=== PATIENT | female | born 2000 | race Caucasian/White ===

== ENCOUNTER 2019-04-18 18:23 | Emergency (ER) | payer BC ==
[2019-04-18] MEDS ORDERED: Sodium Chloride 0.9% 10 ML Syringe FLUSH PRN (18:46)
[2019-04-18] MEDS ORDERED: Ketorolac 30 MG/ML SDV IVPUSH ONE (18:47)
[2019-04-18] MEDS ORDERED: Ondansetron 4 MG/2 ML SDV IVPUSH ONE (18:47)
[2019-04-18] MEDS ORDERED: Sodium Chloride 0.9% 1,000 ML IV SCH (19:00)
--- NOTE | 2019-04-18 20:02 | EDM.PDOC ---
ED HPI GENERAL MEDICAL PROBLEM - General Chief Complaint: General Stated Complaint: SICK, CAN'T KEEP ANY FOOD/LIQUID DOWN, HEADACHE Time Seen by Provider: 04/18/19 18:30 Source of Information: Reports: Patient History Limitations: Reports: No Limitations - History of Present Illness INITIAL COMMENTS - FREE TEXT/NARRATIVE: Patient presented to the ED because of headache over the temporal area,throbbing ,8/10 with associated photophobia. She also c/o N/V/D x1 days. denies any fever, chills or abdominal pain. She took OTC aleve without any relief. - Related Data Allergies Allergy/AdvReac Type Severity Reaction Status Date / Time amoxicillin Allergy throat Verified 04/18/19 20:53 swells Home Meds: Home Meds Ibuprofen [Motrin] 800 mg PO Q8H PRN #30 tablet 04/18/19 [Rx] Ondansetron [Zofran ODT] 4 mg PO Q4H PRN #10 tab.dis 04/18/19 [Rx] ED ROS GENERAL - Review of Systems Review Of Systems: See Below Constitutional: Reports: No Symptoms HEENT: Reports: No Symptoms Respiratory: Reports: Cough Cardiovascular: Reports: No Symptoms Endocrine: Reports: No Symptoms GI/Abdominal: Reports: Diarrhea, Nausea, Vomiting. Denies: Abdominal Pain : Reports: No Symptoms Musculoskeletal: Reports: No Symptoms Skin: Reports: No Symptoms ED EXAM, GENERAL - Physical Exam Exam: See Below Exam Limited By: No Limitations General Appearance: Alert, WD/WN, No Apparent Distress Ears: Normal External Exam, Normal Canal Nose: Normal Inspection, Normal Mucosa, No Blood Throat/Mouth: Normal Inspection, Normal Lips, Normal Teeth, Normal Gums Head: Atraumatic, Normocephalic Neck: Normal Inspection, Supple, Non-Tender, Full Range of Motion GI/Abdominal: Soft, Non-Tender, No Organomegaly, No Distention, Other ( hyperactive bowel sound) Back Exam: Normal Inspection, Full Range of Motion Extremities: Normal Inspection, Normal Range of Motion Course - Vital Signs Text/Narrative:: labs reviewed wnad discussed with patient NS 1 L bolus Zofran 4 mg IV toradol 30 mg IV x1 Last Recorded V/S: Last Vital Signs Temp 36.4 C 04/18/19 20:25 Pulse 91 04/18/19 20:25 Resp 18 04/18/19 20:25 BP 125/72 04/18/19 20:25 Pulse Ox 100 04/18/19 20:25 - Orders/Labs/Meds Orders: Active Orders 24 hr Category Date Time Status Saline Lock Insert [OM.PC] Routine Oth 04/18/19 18:46 Ordered Labs: Laboratory Tests 04/18/19 04/18/19 Range/Units 18:53 18:53 WBC 10.7 (4.5-12.0) X10-3/uL RBC 5.00 (3.23-5.20) x10(6)uL Hgb 15.5 (11.5-15.5) g/dL Hct 46.3 (30.0-51.3) % MCV 92.6 (80-96) fL MCH 31.1 (27.7-33.6) pg MCHC 33.5 (32.2-35.4) g/dL RDW 12.4 (11.5-15.5) % Plt Count 275 (125-369) X10(3)uL MPV 8.6 (7.4-10.4) fL Neut % (Auto) 66.3 (46-82) % Lymph % (Auto) 24.4 (13-37) % [place] % (Auto) 8.0 (4-12) % Eos % (Auto) 1 (1.0-5.0) % Baso % (Auto) 1 (0-2) % Neut # (Auto) 7.0 (1.6-8.3) # Lymph # (Auto) 2.6 (0.6-5.0) # [place] # (Auto) 0.9 (0.0-1.3) # Eos # (Auto) 0.1 (0.0-0.8) # Baso # (Auto) 0.1 (0.0-0.2) # Sodium 144 (135-145) mmol/L Potassium 3.8 (3.5-5.3) mmol/L Chloride 105 (100-110) mmol/L Carbon Dioxide 29 (21-32) mmol/L BUN 11 (7-18) mg/dL Creatinine 0.8 (0.55-1.02) mg/dL Est Cr Clr Drug Dosing TNP Estimated GFR (MDRD) > 60 (>60) BUN/Creatinine Ratio 13.8 (9-20) Glucose 87 (80-116) mg/dL Calcium 9.8 (8.6-10.2) mg/dL Meds: Medications Discontinued Medications Generic Name Dose Route Start Last Admin Trade Name Ruthie PRN Reason Stop Dose Admin Sodium Chloride 1,000 mls @ 999 mls/hr 04/18/19 19:00 04/18/19 19:25 Normal Saline IV 999 mls/hr ASDIRECTED DADA Administration Ketorolac Tromethamine 30 mg 04/18/19 18:47 04/18/19 19:42 Toradol IVPUSH 04/18/19 18:48 30 mg ONETIME ONE Administration Ondansetron HCl 4 mg 04/18/19 18:47 04/18/19 19:40 Zofran IVPUSH 04/18/19 18:48 4 mg ONETIME ONE Administration Sodium Chloride 10 ml 04/18/19 18:46 Saline Flush FLUSH ASDIRECTED PRN Keep Vein Open Departure - Departure Time of Disposition: 20:30 Disposition: Home, Self-Care 01 Condition: Good Clinical Impression: Migraine, Gastroenteritis - Discharge Information Prescriptions: Ibuprofen [Motrin] 800 mg PO Q8H PRN #30 tablet PRN Reason: Pain Ondansetron [Zofran ODT] 4 mg PO Q4H PRN #10 tab.dis PRN Reason: Nausea Instructions: Viral Gastroenteritis, Adult, Migraine Headache Referrals: PCP,None [Primary Care Provider] - Forms: ED Department Discharge Additional Instructions: please read discharge instructions on gastroenteritis and migraine frequent hand washing increase oral fluids zofran ODT 4 mg every 4 hours as needed for nausea/vomiting take ibuprofen 800 mg with tylenol 1000 mg every 8 hours as needed for pain follow up as needed - My Orders Last 24 Hours: My Active Orders 04/18/19 18:46 Saline Lock Insert [OM.PC] Routine - Assessment/Plan Last 24 Hours: My Active Orders 04/18/19 18:46 Saline Lock Insert [OM.PC] Routine
== END 2019-04-18 20:30 | disposition home or self-care (01) ==
LOC: FB.ED 18:23
DX: G43.909 Migraine, unspecified, not intractable, without status migrainosus (principal); K52.9 Noninfective gastroenteritis and colitis, unspecified; Z88.0 Allergy status to penicillin
CPT/HCPCS: 36415; 80048; 85025; 96361; 96374; 96375; 99284-25; J1885; J2405; J7030